=== PATIENT | male | born 1965 | race Caucasian/White ===

== ENCOUNTER 2017-04-02 22:42 | Emergency (ER) | payer SELFPAY ==
[2017-04-02] MEDS ORDERED: Sodium Chloride 0.9% 1,000 ML IV ONE (23:28)
--- NOTE | 2017-04-02 23:28 | C.PDOC ---
History Of Present Illness Pt with sudden onset of left flank pain radiating to the groin. No f/c some nausea. Sharp stabbing pain Time Seen by Provider: 04/02/17 23:28 Chief Complaint (Nursing): Abdominal Pain History Per: Patient History/Exam Limitations: no limitations Onset/Duration Of Symptoms: Hrs Current Symptoms Are (Timing): Worse Context: Other Severity: Severe Pain Scale Rating Of: 8 Location Of Pain/Discomfort: LLQ Radiation Of Pain To:: Back Quality Of Discomfort: Sharp, Cramping, Stabbing Associated Symptoms: Nausea. denies: Fever, Chills Exacerbating Factors: None Alleviating Factors: None Last Bowel Movement: Today Recent travel outside of the [place]: No Additional History Per: Family Past Medical History Reviewed: Historical Data, Nursing Documentation, Vital Signs Vital Signs: Last Vital Signs Temp 99.2 F 04/02/17 22:54 Pulse 120 H 04/02/17 22:54 Resp 20 04/02/17 22:54 BP 231/113 H 04/02/17 22:54 Pulse Ox 100 04/02/17 23:37 - Medical History PMH: HTN Family History: States: No Known Family Hx - Social History Hx Alcohol Use: No Hx Substance Use: No - Immunization History Hx Tetanus Toxoid Vaccination: No Hx Influenza Vaccination: No Hx Pneumococcal Vaccination: No Review Of Systems Constitutional: Negative for: Fever, Chills Eyes: Negative for: Redness ENT: Negative for: Throat Pain Cardiovascular: Negative for: Chest Pain Respiratory: Negative for: Shortness of Breath Gastrointestinal: Positive for: Nausea, Vomiting, Abdominal Pain (left flank pain) Genitourinary: Negative for: Dysuria Musculoskeletal: Positive for: Back Pain Skin: Negative for: Lesions Neurological: Negative for: Weakness Psych: Positive for: Anxiety Physical Exam - Physical Exam Appears: Non-toxic Skin: Diaphoretic Oral Mucosa: Dry Neck: Trachea Midline, Supple Chest: Symmetrical Cardiovascular: Rhythm Regular Respiratory: No Rales, No Rhonchi, No Wheezing Gastrointestinal/Abdominal: Soft, Tenderness (left flank), No Distention, No Guarding, No Rebound Back: CVA Tenderness (left) Male Genital: No Testicular Tenderness, No Testicular Swelling, No Inguinal Tenderness, No Inguinal Swelling Extremity: No Tenderness Extremity: Bilateral: Atraumatic, Normal Color And Temperature Neurological/Psych: Oriented x3, Normal Speech, Normal Cognition Gait: Steady ED Course And Treatment - Laboratory Results Result Diagrams: 04/02/17 23:46 04/02/17 23:46 O2 Sat by Pulse Oximetry: 100 Pulse Ox Interpretation: Normal Reevaluation Time: 03:25 Reassessment Condition: Improved Disposition Counseled Patient/Family Regarding: Studies Performed, Diagnosis, Need For Followup, Rx Given - Disposition Referrals: Quincy Cobb MD [Staff Provider] - Disposition: HOME/ ROUTINE Disposition Time: 23:28 Condition: FAIR Prescriptions: Naproxen [Naprosyn] 1 tab PO BID PRN #25 tab PRN Reason: Pain Nitrofurantoin Macrocrystals [Macrobid] 1 cap PO BID #14 cap Ondansetron ODT [Zofran ODT] 1 odt PO BID PRN #10 odt PRN Reason: Nausea/Vomiting oxyCODONE/Acetaminophen [Percocet 5/325 mg Tab] 1 tab PO QID PRN #12 tab PRN Reason: Pain Tamsulosin [Flomax] 0.4 mg PO DAILY #15 cap Instructions: Renal Colic (ED), Kidney Stones (DC), Hydronephrosis (DC) - Clinical Impression Clinical Impression: Abdominal pain, Renal colic on left side, Kidney stone on left side, Hydroureteronephrosis
[2017-04-02] MEDS ORDERED: Morphine 4 MG/ML VIAL ONE (23:31)
[2017-04-02] MEDS ORDERED: Sodium Chloride 0.9% 1,000 ML ONE (23:31)
[2017-04-02] MEDS ORDERED: Sodium Chloride 0.9% 2,000 ML IV ONE (23:38)
[2017-04-02 23:50] LABS: BASO # 0.1 K/uL (0.0-0.2); BASO % 0.7 % (0.0-2.0); EOS % 0.1 % (0.0-4.0); HEMATOCRIT 42.6 % (35.0-51.0); LYMPH # 2.3 K/uL (1.0-4.3); LYMPH % 14.8 % (20.0-40.0); MEAN CELL VOLUME 80.8 fL (80.0-94.0); MEAN CORPUSCULAR HGB CONC 32.2 g/dL (33.0-37.0); MEAN PLATELET VOLUME 8.6 fL (7.2-11.7); MONO # 0.9 K/uL (0.0-0.8); MONO % 5.4 % (0.0-10.0); RED CELL DISTRIBUTION WIDTH 13.8 % (11.5-14.5); WHITE BLOOD COUNT 15.9 K/uL (4.8-10.8)
[2017-04-02 23:58] LABS: CHLORIDE 105 mmol/L (98-107)
[2017-04-02 23:59] LABS: POTASSIUM 3.4 mmol/L (3.6-5.2); SODIUM 143 mmol/L (132-148)
[2017-04-03] LABS: INR 1.1
[2017-04-03 00:01] LABS: BILIRUBIN,TOTAL 0.7 mg/dL (0.2-1.3); CARBON DIOXIDE 26 mmol/L (22-30); GFR AFRICAN-AMERICAN > 60
[2017-04-03 00:02] LABS: ALB/GLOB RATIO 1.5 (1.0-2.1); ALKALINE PHOSPHATASE 106 U/L (38-126); ALT/SGPT 19 U/L (21-72); AST/SGOT 21 U/L (17-59); BLOOD UREA NITROGEN 17 mg/dL (9-20); CALCIUM 9.1 mg/dl (8.6-10.4); GLUCOSE,RANDOM 171 mg/dL (75-110); TOTAL PROTEIN 7.6 g/dL (6.3-8.3)
[2017-04-03] MEDS ORDERED: Piperacillin/Tazobact 3.375 gm 100 ML IVPB STA (00:06)
[2017-04-03 01:06] LABS: RBC URINE 13 /hpf (0-3); URINE BACTERIA RARE (<OCC); URINE BILIRUBIN NEGATIVE (NEGATIVE); URINE BLOOD 2+ (NEGATIVE); URINE COLOR Colorless (YELLOW); URINE GLUCOSE (UA) 2+ mg/dL (Normal); URINE KETONE NEGATIVE (NEGATIVE); URINE LEUKOCYTE ESTERASE NEG Leu/uL (Negative); URINE PROTEIN NEGATIVE (NEGATIVE); URINE UROBILINOGEN NORMAL mg/dL (0.2-1.0); WBC URINE 4 /hpf (0-5)
[2017-04-03] MEDS ORDERED: Piperacillin/Tazobact 3.375 gm 100 ML IVPB ONE (01:09)
[2017-04-03 03:43] VITALS: BP 189/88; PULSE 80; RESP 18; TEMP 98.6; O2SAT 99
--- NOTE | 2017-04-03 07:51 | CT ---
PROCEDURE: CT Abdomen and Pelvis without intravenous contrast HISTORY: sudden onset left flank pain COMPARISON: None. TECHNIQUE: Multiple contiguous axial images were performed through the abdomen and pelvis without intravenous contrast. Subsequently, sagittal and coronal reformatted images were obtained. Radiation dose: Total exam DLP = 363 mGy-cm. This CT exam was performed using one or more of the following dose reduction techniques: Automated exposure control, adjustment of the mA and/or kV according to patient size, and/or use of iterative reconstruction technique. FINDINGS: LOWER THORAX: Mild bibasilar atelectasis. LIVER: Unremarkable. No gross lesion or ductal dilatation. GALLBLADDER AND BILE DUCTS: Unremarkable. PANCREAS: Unremarkable. No gross lesion or ductal dilatation. SPLEEN: Unremarkable. ADRENALS: Unremarkable. No mass. KIDNEYS AND URETERS: Mild to moderate left hydroureteronephrosis and perinephric stranding within obstructing 4-5 millimeter calculus in the distal left ureter. 3.7 centimeter hypoechoic cyst in the midpole of the right kidney demonstrating a Hounsfield unit attenuation of 3. Additional 1.5 centimeter hypoattenuated cyst in the midpole of the left kidney demonstrating a Hounsfield unit attenuation of 1. VASCULATURE: Unremarkable. No aortic aneurysm. BOWEL: Colonic diverticuli. APPENDIX: Unremarkable. Normal appendix. PERITONEUM: Unremarkable. No free fluid. No free air. LYMPH NODES: Unremarkable. No enlarged lymph nodes. BLADDER: Thickening and/or underdistention of the urinary bladder. Superimposed cystitis is not entirely excluded. Clinical correlation. REPRODUCTIVE: Moderate to severe nonspecific enlargement of the prostate gland. Clinical correlation. BONES: Degenerative changes throughout the spine. OTHER FINDINGS: None. IMPRESSION: Mild to moderate left hydroureteronephrosis with perinephric fat stranding and an obstructing 4-5 millimeter calculus in the distal left ureter. Bilateral renal cysts. Thickening of the wall of an underdistended urinary bladder. Superimposed cystitis is not entirely excluded. Correlation with urinalysis is recommended. Additional findings as above. These findings were preliminarily reported at 3:10 a.m. on 04/03/[address] Macey Ochoa from [facility].
== END 2017-04-03 03:38 | disposition home or self-care (01) ==
LOC: C.ER 22:42
DX: N13.2 Hydronephrosis with renal and ureteral calculous obstruction (principal)
CPT/HCPCS: 74176; 80053; 81001; 83690; 85025; 85610; 85730; 96361; 96365; 96375; 99284; J1885; J2270; J2405; J2543; J7040

== ENCOUNTER → 2017-04-06 19:20 | Emergency (ER) | payer SELFPAY | END | disposition left against medical advice (07) | LOC: C.ER 19:20 | DX: Z02.89 Encounter for other administrative examinations (principal); Z00.00 Encounter for general adult medical examination without abnormal findings ==

== ENCOUNTER 2017-04-06 19:31 | Emergency (ER) | payer SELFPAY ==
[2017-04-06 20:16] LABS: BASO # 0.1 K/uL (0.0-0.2); BASO % 0.7 % (0.0-2.0); EOS # 0.1 K/uL (0.0-0.7); HEMATOCRIT 40.9 % (35.0-51.0); LYMPH # 2.9 K/uL (1.0-4.3); LYMPH % 32.3 % (20.0-40.0); MEAN CELL VOLUME 81.2 fL (80.0-94.0); MEAN CORPUSCULAR HEMOGLOBIN 26.2 pg (27.0-31.0); MEAN CORPUSCULAR HGB CONC 32.2 g/dL (33.0-37.0); MEAN PLATELET VOLUME 8.8 fL (7.2-11.7); MONO # 0.7 K/uL (0.0-0.8); MONO % 7.5 % (0.0-10.0); RED CELL DISTRIBUTION WIDTH 13.7 % (11.5-14.5); WHITE BLOOD COUNT 8.9 K/uL (4.8-10.8)
[2017-04-06 20:25] LABS: CHLORIDE 99 mmol/L (98-107); POTASSIUM 3.4 mmol/L (3.6-5.2); SODIUM 137 mmol/L (132-148)
[2017-04-06 20:27] LABS: GFR AFRICAN-AMERICAN > 60
[2017-04-06 20:28] LABS: ALB/GLOB RATIO 1.6 (1.0-2.1); ALKALINE PHOSPHATASE 95 U/L (38-126); ALT/SGPT 24 U/L (21-72); AST/SGOT 19 U/L (17-59); BILIRUBIN,TOTAL 0.6 mg/dL (0.2-1.3); BLOOD UREA NITROGEN 10 mg/dL (9-20); CARBON DIOXIDE 28 mmol/L (22-30); GLUCOSE,RANDOM 151 mg/dL (75-110)
[2017-04-06 20:29] LABS: CALCIUM 8.7 mg/dl (8.6-10.4)
--- NOTE | 2017-04-06 20:48 | C.PDOC ---
History Of Present Illness 51 y/o male presents to the ED for evaluation elevated blood pressure. Pt states he ran out of unknown BP medication 2 weeks ago, recently from [facility]. Pt complaining of mild headache and head fullness. Pt seen here 04/03 for left renal colic, drinking fluids and taking pain medications with relief. Pending outoatient urology appointment. Denies fever, chills, nausea, vomiting, SOB, chest pain or any other complaints. Time Seen by Provider: 04/06/17 19:45 Chief Complaint (Nursing): High Blood Pressure History Per: Patient History/Exam Limitations: no limitations Onset/Duration Of Symptoms: Hrs Current Symptoms Are (Timing): Still Present Associated Symptoms: Headache. denies: Chest Pain Quality Of Symptoms: No Rhythm Irregularity Severity: Mild Exacerbating Factor(s): Pos: Recently Missed Doses Of Medication Recent travel outside of the [place]: No Past Medical History Reviewed: Historical Data, Nursing Documentation, Vital Signs Vital Signs: Last Vital Signs Temp 97.7 F 04/06/17 19:34 Pulse 67 04/06/17 21:33 Resp 16 04/06/17 21:33 BP 164/93 H 04/06/17 21:33 Pulse Ox 100 04/06/17 21:51 - Medical History PMH: HTN Family History: States: Unknown Family Hx - Social History Hx Alcohol Use: No Hx Substance Use: No - Immunization History Hx Tetanus Toxoid Vaccination: No Hx Influenza Vaccination: No Hx Pneumococcal Vaccination: No Review Of Systems Except As Marked, All Systems Reviewed And Found Negative. Constitutional: Negative for: Fever, Chills Cardiovascular: Negative for: Chest Pain Respiratory: Negative for: Shortness of Breath Gastrointestinal: Negative for: Nausea, Vomiting Neurological: Positive for: Headache Physical Exam - Physical Exam Appears: Non-toxic, No Acute Distress Skin: Warm, Dry, No Rash Head: Atraumatic, Normacephalic Eye(s): bilateral: Normal Inspection, PERRL, EOMI Neck: Normal, Normal ROM, Supple Chest: Symmetrical Cardiovascular: Rhythm Regular, No Murmur Respiratory: Normal Breath Sounds, No Rales, No Rhonchi, No Wheezing Gastrointestinal/Abdominal: Normal Exam, Soft, No Tenderness Extremity: Normal ROM, No Pedal Edema Extremity: Bilateral: Atraumatic Neurological/Psych: Oriented x3, Normal Speech ED Course And Treatment - Laboratory Results Result Diagrams: 04/06/17 20:12 04/06/17 20:12 Lab Interpretation: Normal ECG: Interpreted By Me ECG Rhythm: Sinus Rhythm ECG Interpretation: Normal Rate From EC O2 Sat by Pulse Oximetry: 100 (room air) Pulse Ox Interpretation: Normal - Radiology CXR: Interpreted by Me CXR Interpretation: Yes: No Acute Disease Reevaluation Time: 21:45 (BP improved but not normalized, vague symptoms resolved.) Reassessment Condition: Improved Medical Decision Making Medical Decision Making: poorly controlled BP, off meds from [facility] (? name) x 2 weeks Start Vasotec 40 daily and continue in Clinic or with your PMD in 2-3 weeks ( call for appt) Consider adding beta-blockers for cardiomegaly and LVH on EKG Consider outpatient urine/serum metanephrines to rule-out pheochromocytoma/ adrenal tumors. Disposition Doctor Will See Patient In The: Office Counseled Patient/Family Regarding: Studies Performed, Diagnosis - Disposition Referrals: [facility] [Outside] Richelle Griffith MD [Staff Provider] - Jin Ko MD [Staff Provider] - Disposition: HOME/ ROUTINE Disposition Time: 21:51 Condition: GOOD Additional Instructions: take Vasotec 40 mg daily Prescriptions: Enalapril Maleate [Vasotec] 40 mg PO DAILY #60 tab Instructions: Hypertension (ED) - Clinical Impression Clinical Impression: Hypertension - Scribe Statement The provider has reviewed the documentation as recorded by the Guadalupeibrm Duran Provider Attestation: All medical record entries made by the Scribe were at my direction and personally dictated by me. I have reviewed the chart and agree that the record accurately reflects my personal performance of the history, physical exam, medical decision making, and the department course for this patient. I have also personally directed, reviewed, and agree with the discharge instructions and disposition.
[2017-04-06 21:11] LABS: RBC URINE 1 /hpf (0-3); URINE BILIRUBIN NEGATIVE (NEGATIVE); URINE BLOOD 2+ (NEGATIVE); URINE COLOR Straw (YELLOW); URINE GLUCOSE (UA) 1+ mg/dL (Normal); URINE KETONE NEGATIVE (NEGATIVE); URINE LEUKOCYTE ESTERASE NEG Leu/uL (Negative); URINE PROTEIN NEGATIVE (NEGATIVE); URINE UROBILINOGEN NORMAL mg/dL (0.2-1.0); WBC URINE < 1 /hpf (0-5)
[2017-04-06 21:34] VITALS: RESP 16
[2017-04-06 22:13] VITALS: BP 169/109; PULSE 68; TEMP 98.5; O2SAT 97
--- NOTE | 2017-04-07 09:46 | RAD ---
PROCEDURE: CHEST RADIOGRAPH, 1 VIEW HISTORY: SOB COMPARISON: None available. FINDINGS: LUNGS: The lungs are well inflated and clear. PLEURA: No pneumothorax or pleural fluid seen. CARDIOVASCULAR: Normal. OSSEOUS STRUCTURES: No significant abnormalities. VISUALIZED UPPER ABDOMEN: Normal. OTHER FINDINGS: None. IMPRESSION: No active pulmonary disease.
== END 2017-04-06 22:08 | disposition home or self-care (01) ==
LOC: C.ER 19:31
DX: I10 Essential (primary) hypertension (principal)